=== PATIENT | female | born 1980 | race Caucasian/White ===

== ENCOUNTER 2019-12-05 19:45 | Emergency (ER) | payer OTHER ==
[~2019-12-05] VITALS: Ht 167.6 cm; Wt 59.4 kg
[~2019-12-05 19:45] MED LIST: ALBU90OI; ALBU90OI INH; ALBU90OI6 INH; ALBU90OI61 INH; ARIP30; AZIT250 PO; Butalbital-Caf1 EACH PO; CARI350; CHLO5 PO; CLON.5; CYCL10 PO; DIAZ10; DIAZ5 PO; DIPH50; DOXY100 PO; DULO30; DULO30 PO; EPIN.3I IM; EPINEPHRIN0.3 MG/0.3; ERYT250 PO; ESTRADIOL1 MG PO; FLUT1DIS2; GABA300 PO; HYDACE10B; HYDACE10B PO; HYDACE5 PO; HYDACE5325; HYDGUAL120 PO; HYDPAM50; IBUP800 PO; LORA1; LORA1 PO; LORA2; META800 PO; METCAR500 PO; METR500 PO; NAPR500; NAPR500 PO; NAPR550; NAPR550 PO; OLAN10; OXYACE5T PO; PERM5TC TOP; PRED10 PO; PRED20 PO; PROACE100 PO; PROM25; PROM25 PO; PROMETHAZINE 50 MG; RISP1; ROFE25; RXCYCL10 PO; RXHYDACE PO; RXNAPNA550 PO; RXPROACE PO; RXTRAM50 PO; TIOT18 INH; TRAM50 PO; TRAZ100; VENL75; VENL75ER
== END 2019-12-05 20:47 | disposition home or self-care (01) ==
LOC: ER 19:45
DX: S40.021D Contusion of right upper arm, subsequent encounter (principal); S30.1XXD Contusion of abdominal wall, subsequent encounter; S80.12XD Contusion of left lower leg, subsequent encounter; S80.11XD Contusion of right lower leg, subsequent encounter; G40.909 Epilepsy, unspecified, not intractable, without status epilepticus; J45.909 Unspecified asthma, uncomplicated; F17.210 Nicotine dependence, cigarettes, uncomplicated; Z88.1 Allergy status to other antibiotic agents; Z88.8 Allergy status to other drugs, medicaments and biological substances; Z88.2 Allergy status to sulfonamides; Z88.0 Allergy status to penicillin; Z88.6 Allergy status to analgesic agent; Z88.5 Allergy status to narcotic agent; Z79.899 Other long term (current) drug therapy; Z79.3 Long term (current) use of hormonal contraceptives; Y04.8XXD Assault by other bodily force, subsequent encounter
CPT/HCPCS: 99282-25